=== PATIENT | female | born 1970 | race Caucasian/White ===

== ENCOUNTER → 2016-10-16 | Outpatient (CLI) | payer OTHER ==
--- NOTE | 2016-10-16 14:00 | DIAGNOSTIC IMAGING REPORT ---
SI JOINTS 3 OR MORE VIEWS CLINICAL HISTORY: [facility] USE OF IMMUNO USUS SUPPORT pain COMPARISON STUDY: None FINDINGS: Negative study. Sacral foramina are symmetric. No evidence of bony ankylosis. IMPRESSION: Negative study Electronically signed by: Nikolay Orozco M.D. 10/16/2016 1:59 PM Dictated Date/Time: 10/16/2016 1:57 PM
--- NOTE | 2016-10-16 14:02 | DIAGNOSTIC IMAGING REPORT ---
LUMBAR SPINE 5 VIEWS HISTORY: Pain HALFWAY USE OF IMMUNOUSUSSUPPORT COMPARISON: None. FINDINGS: There is no fracture. No subluxation. Moderate degenerative intervertebral disc changes throughout. Reactive anterior and posterior osteophytic change throughout. No evidence for compression deformity. Degenerative changes of the lateral elements. IMPRESSION: Moderate degenerative change throughout the entire lumbar region. No acute process. Electronically signed by: Nikolay Orozco M.D. 10/16/2016 2:01 PM Dictated Date/Time: 10/16/2016 1:59 PM
[2016-10-16 14:47] LABS: BASO % 0.1 %; BASO ABS # 0.01 K/uL (0-0.2); COMPLETE YES; HEMATOCRIT 35.8 % (37-47); IG% 0.1 %; LYMPH % 42.2 %; MEAN CELL VOLUME 88.4 fL (80-100); MEAN CORPUSCULAR HEMOGLOBIN 30.1 pg (25-34); MEAN CORPUSCULAR HGB CONC 34.1 g/dl (32-36); MEAN PLATELET VOLUME 9.3 fL (7.4-10.4); MONO % 7.3 %; NEUT % 49.3 %; PLATELET COUNT 257 K/uL (130-400); RED BLOOD COUNT 4.05 M/uL (4.2-5.4); WHITE BLOOD COUNT 7.11 K/uL (4.8-10.8)
[2016-10-16 15:22] LABS: ALT/SGPT 26 U/L (12-78); AST/SGOT 14 U/L (15-37); CREATININE 0.65 mg/dl (0.60-1.20)
[2016-10-16 15:24] LABS: ALKALINE PHOSPHATASE 130 U/L (45-117)
== END | disposition home or self-care (01) ==
LOC: C.RAD1850 13:32
PROVIDERS: ATTEND Internal Medicine Rheumatology
DX: L40.8 Other psoriasis (principal); M25.50 Pain in unspecified joint; M46.1 Sacroiliitis, not elsewhere classified; M47.816 Spondylosis without myelopathy or radiculopathy, lumbar region; M54.5 Low back pain; Z79.899 Other long term (current) drug therapy; M19.90 Unspecified osteoarthritis, unspecified site

== ENCOUNTER → 2017-04-07 | Outpatient (CLI) | payer OTHER ==
[2017-04-07 14:44] LABS: BASO % 0.3 %; BASO ABS # 0.02 K/uL (0-0.2); COMPLETE YES; EOS % 1.5 %; IG% 0.5 %; LYMPH % 42.6 %; LYMPH ABS # 2.64 K/uL (1.2-3.4); MEAN CORPUSCULAR HGB CONC 32.2 g/dl (32-36); MEAN PLATELET VOLUME 9.7 fL (7.4-10.4); MONO % 7.1 %; PLATELET COUNT 264 K/uL (130-400)
[2017-04-07 15:05] LABS: ALKALINE PHOSPHATASE 141 U/L (45-117); ALT/SGPT 46 U/L (12-78); AST/SGOT 30 U/L (15-37); CREATININE 0.78 mg/dl (0.60-1.20)
== END | disposition home or self-care (01) ==
LOC: C.LAB1850 12:42
PROVIDERS: ATTEND Internal Medicine Rheumatology
DX: M46.1 Sacroiliitis, not elsewhere classified (principal)

== ENCOUNTER → 2017-06-30 | Outpatient (CLI) | payer OTHER ==
[2017-06-30 12:23] LABS: BASO % 0.2 %; BASO ABS # 0.01 K/uL (0-0.2); COMPLETE YES; EOS % 1.8 %; HEMATOCRIT 33.6 % (37-47); IG% 0.4 %; LYMPH % 43.7 %; LYMPH ABS # 2.41 K/uL (1.2-3.4); MEAN CELL VOLUME 88.2 fL (80-100); MEAN CORPUSCULAR HEMOGLOBIN 28.9 pg (25-34); MEAN CORPUSCULAR HGB CONC 32.7 g/dl (32-36); MEAN PLATELET VOLUME 9.4 fL (7.4-10.4); MONO % 7.6 %; NEUT % 46.3 %; PLATELET COUNT 258 K/uL (130-400); RED BLOOD COUNT 3.81 M/uL (4.2-5.4); WHITE BLOOD COUNT 5.52 K/uL (4.8-10.8)
[2017-06-30 13:15] LABS: ALT/SGPT 25 U/L (12-78); AST/SGOT 17 U/L (15-37); CREATININE 0.64 mg/dl (0.60-1.20)
== END | disposition home or self-care (01) ==
LOC: C.LAB1850 10:01
PROVIDERS: ATTEND Internal Medicine Rheumatology
DX: M46.90 Unspecified inflammatory spondylopathy, site unspecified (principal); L40.50 Arthropathic psoriasis, unspecified; Z51.81 Encounter for therapeutic drug level monitoring; Z79.899 Other long term (current) drug therapy; L08.9 Local infection of the skin and subcutaneous tissue, unspecified